=== PATIENT | male | born 1960 | race Caucasian/White ===

== ENCOUNTER 2017-05-10 23:08 | Emergency (ER) | payer OTHER ==
[2017-05-10 23:58] VITALS: TEMP 98.1; BMI 34.0
--- NOTE | 2017-05-11 01:15 | PDOC ---
History of Present Illness - General History Source: Patient Exam Limitations: No Limitations - History of Present Illness Initial Comments: 05/11/17 01:35 Patient is a 56 year old male with no pmhx who presents to the ED with high blood pressure. Patient states that he worked out today at 8 PM and decided to take his BP that was 168/104. He notes that he is unsure if the machine was accurate which prompted him to present to the ED. He denies any cardiac history. He is a nonsmoker. He reports that he has been athletic and continue to work out. Patient is a nonsmoker. PCP - Dr. Pal Cuenca <Terrie Pike - Last Filed: 05/11/17 01:36> <Jacqueline Sosa - Last Filed: 05/11/17 02:26> - General Chief Complaint: Blood Pressure Problem Stated Complaint: HIGH BLOOD PRESSURE Time Seen by Provider: 05/11/17 01:14 Past History <Terrie Pike - Last Filed: 05/11/17 01:36> - Suicide/Smoking/Psychosocial Hx Smoking History: Never smoked Have you smoked in the past 12 months: No Information on smoking cessation initiated: No Hx Alcohol Use: No Drug/Substance Use Hx: No <Jacqueline Sosa - Last Filed: 05/11/17 02:26> - Past Medical History Allergies/Adverse Reactions: Allergies Allergy/AdvReac Type Severity Reaction Status Date / Time No Known Allergies Allergy Verified 05/10/17 23:55 Home Medications: Ambulatory Orders Amlodipine Besylate [Norvasc -] 10 mg PO DAILY #14 tablet 05/11/17 Review of Systems - Review of Systems Able to Perform ROS?: Yes Comments:: 05/11/17 01:35 CONSTITUTIONAL: Absent: fever, no chills, no fatigue EYES: Absent: visual changes ENT: Absent: ear pain, no sore throat CARDIOVASCULAR: Present: blood pressure problem Absent: chest pain, no palpitations RESPIRATORY: Absent: cough, no SOB GI: Absent: abdominal pain, no nausea, no vomiting, no constipation, no diarrhea GENITOURINARY: Absent: dysuria, no frequency, no hematuria MUSCULOSKELETAL: Absent: back pain, no arthralgia, no myalgia SKIN: Absent: rash NEURO: Absent: headache <Terrie Pike - Last Filed: 05/11/17 01:36> *Physical Exam - Vital Signs Last Vital Signs Temp Pulse Resp BP Pulse Ox 98.1 F 85 14 168/104 96 05/10/17 23:55 05/10/17 23:55 05/10/17 23:55 05/10/17 23:55 05/10/17 23:55 - Physical Exam Comments: 05/11/17 01:35 GENERAL: Well-appearing, well-nourished. No apparent distress. HEENT: Normocephalic, atraumatic. PERRL, EOM intact. CARDIOVASCULAR: +BP: LUE 153/104 RUE 168/112. Normal S1, S2. Regular rate and rhythm. PULMONARY: Clear to auscultation bilaterally. ABDOMEN: Soft, non-distended, non-tender. EXTREMITIES: Normal ROM in all four extremities. No gross deformities. SKIN: Warm, dry. No rash NEUROLOGICAL: No focal neurological deficits. <Terrie Pike - Last Filed: 05/11/17 01:36> - Vital Signs Last Vital Signs Temp Pulse Resp BP Pulse Ox 98.1 F 85 14 168/104 96 05/10/17 23:55 05/10/17 23:55 05/10/17 23:55 05/10/17 23:55 05/10/17 23:55 <Jacqueline Sosa - Last Filed: 05/11/17 02:26> *DC/Admit/Observation/Transfer - Attestations Scribe Attestion: 05/11/17 01:36 Documentation prepared by DAVIAN Mccord, acting as medical advisor for Jacqueline Sosa MD/DO. <Terrie Pike - Last Filed: 05/11/17 01:36> <Jacqueline Sosa - Last Filed: 05/11/17 02:26> Diagnosis at time of Disposition: High blood pressure Qualifiers: Hypertension type: essential hypertension Qualified Code(s): I10 - Essential ( primary) hypertension - Discharge Dispostion Disposition: HOME Condition at time of disposition: Stable - Prescriptions Prescriptions: Amlodipine Besylate [Norvasc -] 10 mg PO DAILY #14 tablet - Referrals Referrals: Marcelino Cuenca MD [Primary Care Provider] - - Patient Instructions Printed Discharge Instructions: DI for High Blood Pressure Additional Instructions: please follow up with your doctor to have your blood pressure elevated - Post Discharge Activity
[2017-05-11] MEDS ORDERED: amLODIPine BESYLATE 10 MG TABLET (FP) PO ONE (01:24)
[2017-05-11] MEDS ORDERED: amLODIPine BESYLATE 5 MG TABLET (FP) ONE (01:39)
[2017-05-11 02:38] VITALS: BP 162/92; PULSE 90
--- NOTE | 2017-05-11 11:18 | EKG ---
Test Reason : Blood Pressure : / mmHG Vent. Rate : 077 BPM Atrial Rate : 077 BPM P-R Int : 148 ms QRS Dur : 098 ms QT Int : 386 ms P-R-T Axes : 018 060 037 degrees QTc Int : 436 ms NORMAL SINUS RHYTHM MINIMAL VOLTAGE CRITERIA FOR LVH, MAY BE NORMAL VARIANT BORDERLINE ECG NO PREVIOUS ECGS AVAILABLE Confirmed by STAN GOLDEN MD ([id number]) on 05/11/2017 11:17:48 AM Referred By: Confirmed By:STAN GOLDEN MD
== END 2017-05-11 02:38 | disposition home or self-care (01) ==
LOC: JER 23:08
DX: I10 Essential (primary) hypertension (principal)
CPT/HCPCS: 93005; 93010; 99282-25